=== PATIENT | female | born 1995 | race American Indian/Alaskan Native ===

== ENCOUNTER 2017-02-04 18:29 | Emergency (ER) | payer BC, OTHER ==
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
[2017-02-04] MEDS ORDERED: Albuterol 0.083% 2.5 MG/3 ML Neb Soln NEB ONE (20:20)
[2017-02-04 20:54] LABS: CHLORIDE,CL 106 mmol/L (101-111); SODIUM,NA 135 mmol/L (135-145)
[2017-02-04] MEDS ORDERED: Acetaminophen 325 MG Tab PO ONE (23:13)
[2017-02-05] MEDS ORDERED: Sodium Chloride 0.9% 1,000 ML IV ONE
[2017-02-05 00:08] VITALS: BP 109/57
--- NOTE | 2017-02-06 08:23 | EKG ---
02/04/2017- SAI VARGAS - EKG done on a 21-year-old female, showing sinus tachycardia, heart rate of 128 beats per minute, normal intervals, normal axis. no acute ST T wave changes. [facility] /[id number] MTDD
== END 2017-02-05 00:50 | disposition home or self-care (01) ==
LOC: DL.ED 18:29
DX: O99.513 Diseases of the respiratory system complicating pregnancy, third trimester (principal); J06.9 Acute upper respiratory infection, unspecified; Z3A.35 35 weeks gestation of pregnancy
CPT/HCPCS: 36415; 80053; 81001; 81025; 85025; 85379; 87040; 87081; 87430; 87804; 94640; 96365; 99285; A9270; J7030; J7620

== ENCOUNTER 2017-02-25 13:13 | Inpatient (IN) | payer OTHER ==
[~2017-02-25 13:13] MED LIST: Acetaminophen 325 MG Tab PO PRN; Carboprost Tromethamine 250 MCG/1 ML Amp IM PRN; Lactated Ringers 500 ML IV ONE; Lidocaine 1% 30 ML SDV INJECT PRN; Methylergonovine 0.2 MG/1 ML Amp IM PRN; Misoprostol 400 MCG (4 X 100 MCG TAB) RECTAL PRN; Nalbuphine 10 MG/1 ML Vial IM PRN; Sodium Chloride 0.9% 10 ML Syringe FLUSH PRN; fentaNYL 100 MCG/2 ML SDV IVPUSH PRN
[2017-02-25] MEDS: Lactated Ringers 1,000 ML IV SCH ×4 (16:52→23:35)
[2017-02-25] MEDS: Oxytocin/Normal Saline 30 UNIT/500 ML BAG IV SCH (16:52)
[2017-02-25] MEDS: Ondansetron 4 MG/2 ML SDV IV PRN (22:19)
[2017-02-25] MEDS ORDERED: ePHEDrine 50 MG/ML SDV ONE (22:51)
[2017-02-25] MEDS ORDERED: ePHEDrine 50 MG/ML SDV IV ONE (22:51)
[2017-02-25] MEDS ORDERED: fentaNYL 100 MCG/2 ML SDV ITHECAL ONE (22:51)
--- NOTE | 2017-02-25 23:10 | PCM.PRNOTE ---
- Free Text/Narrative Note: Called to place intrathecal for pain management on this laboring patient. After consent signed, monitors on, proceeded with placement. With patient in sitting position, sterile prep/drape. Skin wheal at L3-4 with 1% lidocaine. LP X 1 at L3-4 with 25 gauge pencan spinal needle via 20g introducer. Positive clear, free flowing CSF, no heme, no paresthesia, then 20mcg sufenta plus 30mcg fentanyl plus 6mg (0.8ml)mpf hyperbaric spinal 0.75%marcaine, plus 0.4ml preservative free normal saline plus epinephrine wash intrathecal. Pt to supine after this. SBP dropped to high 70's, so 10mg ephedrine given while additional fluid bolus given to bring SBP up to 98. FHT's remained stable. Pt reported no discomfort with subsequent contractions.
[2017-02-26] MEDS ORDERED: Ibuprofen 800 MG Tab PO PRN (01:26)
[2017-02-26] MEDS ORDERED: Simethicone 80 MG Tab.Chew PO PRN (01:26)
[2017-02-26] MEDS ORDERED: Benzocaine/Menthol 20%-0.5% Spray 56 GM Canister TOP PRN (01:26)
[2017-02-26] MEDS ORDERED: Docusate Sodium 100 MG Cap PO PRN (01:26)
[2017-02-26] MEDS ORDERED: Zolpidem 5 MG Tab PO PRN (01:26)
[2017-02-26] MEDS: Ondansetron 4 MG/2 ML SDV IV PRN (02:11)
[2017-02-26] MEDS: Oxytocin/Normal Saline 30 UNIT/500 ML BAG IV SCH (02:12)
--- NOTE | 2017-02-26 07:01 | DEL ---
DATE: 02/26/2017 PREPROCEDURE DIAGNOSES: 1. A 37 and 6/7th weeks' based on last menstrual period and 25-week ultrasound. 2. 2, para 1-0-0-1. 3. Oligohydramnios. 4. O positive. 5. Rubella immune. 6. Group strep negative. 7. Insufficient care. 8. Low-grade squamous intraepithelial lesion on Pap smear. 9. Anemia of . 10.Previously low TSH, spontaneously resolved in . 11.Hospital admission in the second trimester for community-acquired pneumonia. POSTPROCEDURE DIAGNOSES: 1. A 37 and 6/7th weeks' based on last menstrual period and 25-week ultrasound. 2. 2, now para 2-0-0-2. 3. Oligohydramnios. 4. O positive. 5. Rubella immune. 6. Group strep negative. 7. Insufficient care. 8. Low-grade squamous intraepithelial lesion on Pap smear. 9. Anemia of . 10.Previously low TSH, spontaneously resolved in . 11.Hospital admission in the second trimester for community-acquired pneumonia. 12.Status post vaginal Delivery. 13.Brisk vaginal bleeding due to uterine atony controlled with bimanual massage and medications. BRIEF HISTORY: A 21-year-old, with the above-listed diagnoses, admitted to the hospital for induction of labor because of oligohydramnios with an JOSEF of 5. Discovered after a clinic visit today with fundal heights measuring less than dates and ultrasound performed. The patient brought in at 3 cm dilated, about 75% effaced, artificial rupture of membranes performed with return of clear fluid. Pitocin then used to further aid labor process. She was in active labor for approximately 8 hours and had an intrathecal for pain management. About the time that it was wearing off, she was ready to start pushing and was able to push for only about 10 minutes before delivering her baby. DETAILS: With the patient in a dorsal lithotomy position, she delivered a viable male in the OA position over intact perineum. 's mouth and nose were bulb suctioned and infant dried and stimulated. Three-vessel umbilical cord was doubly clamped and cut. Baby then taken to the warmer for further evaluation. Cord blood sample obtained and placenta delivered by gentle cord traction and concomitant uterine massage. Bleeding was noted to be brisk from the uterus; therefore, Pitocin was increased to 999 and bimanual massage performed which initially helped with the bleeding then while evaluating the perineal laceration, the bleeding picked up again, so bimanual massage performed again and dose of Methergine given. Once the bleeding was under good control, the first-degree laceration was repaired with 3-0 Vicryl in the usual fashion without complications. The cervix and vaginal sidewalls inspected no other trauma or areas of bleeding were identified. Uterine fundus was firm and responded well to the bimanual massage and the administration of Pitocin and Methergine, and the patient was doing well at end of procedure: COMPLICATIONS: None. ESTIMATED BLOOD LOSS: 450 mL. URINE OUTPUT: 150 mL clear. I did catheterize the patient shortly after delivery to help with the bleeding. FINDINGS: Viable male infant, scores of 9 and 9. weight 7 pounds. Grams currently pending. [facility] /[id number]
--- NOTE | 2017-02-26 12:57 | PCM.POSTAN ---
POST ANESTHESIA ASSESSMENT - MENTAL STATUS Mental Status: other Free Text/Narrative:: pt was asleep when post op visit done. Nurse stated that she is without complaint re: anesthesia - VITAL SIGNS Pulse Rate: 71 Resp Rate: 18 Blood Pressure: 117/71 Temperature: 36.8 C - RESPIRATORY Respiratory Status: respiratory rate WNL - CARDIOVASCULAR CV Status: pulse rate WNL - GASTROINTESTINAL GI Status: no symptoms - POST OP HYDRATION Hydration Status: adequate & stable (Nurse stated that patient has no post anesthesia complications. No c/o back pain, no c/o PDPH, etc.)
[2017-02-26] MEDS: Ferrous Sulfate 325 MG Tab PO SCH ×2 (16:05→17:48)
[2017-02-26] MEDS: Prenatal Multivitamin with Calcium/Folic Acid/Iron Tab PO SCH (16:06)
[2017-02-26] MEDS: Ascorbic Acid 500 MG Tab PO SCH ×2 (16:06→21:31)
[2017-02-27] MEDS ORDERED: Ascorbic Acid 500 MG Tab PO SCH (08:00)
[2017-02-27 08:39] VITALS: BP 105/62
[2017-02-27] MEDS: Prenatal Multivitamin with Calcium/Folic Acid/Iron Tab PO SCH (12:36)
[2017-02-27] MEDS: Ferrous Sulfate 325 MG Tab PO SCH (12:36)
--- NOTE | 2017-02-28 02:01 | DISCH ---
ADMITTING DIAGNOSES: 1. A 37 and 5/7th weeks' based on last menstrual period. 2. 2, para 1-0-0-1. 3. Oligohydramnios indicating need for induction of labor. 4. Blood type O positive, rubella immune, and group B strep negative. 5. Insufficient care. 6. Low-grade squamous intraepithelial lesion on Pap smear. 7. Anemia of . 8. History of suppressed TSH this with negative endocrine evaluation. 9. History hospitalization in the second trimester for community-acquired pneumonia. DISCHARGE DIAGNOSES: Same 10. Post vaginal delivery viable male infant. 11. Post laceration repair. BRIEF HISTORY: A 21-year-old female, admitted to the hospital for induction of labor because of oligohydramnios and an JOSEF of 5. After reactive NST, the patient underwent artificial rupture of membranes followed by augmentation of labor with Pitocin and had a spontaneous vaginal delivery after 8 hours of stage I labor and approximately 10 minutes of pushing, placenta delivered within 3 minutes and there was brisk bleeding noted controlled with bimanual massage and administration of high-dose Pitocin and dose of Methergine. Labia, vagina, and cervix were inspected, and she did have a first-degree midline laceration that needed repair and was performed without difficulty. All of these procedures could be performed under intrathecal without any complications. See the admission history and physical for other details regarding her . HOSPITAL COURSE: Good. The patient has been ambulating and tolerating regular diet since time of delivery and had no other concerns or problems noted by the staff or herself. She is not experiencing any symptoms of preeclampsia. No symptoms of chest pain or shortness of breath. Vaginal bleeding has been well controlled, and she denies any other specific concerns. DISCHARGE CONDITION: Good. PHYSICAL EXAMINATION: Vital Signs: Temperature is 98.6, pulse 68, blood pressure 105/62, respiratory rate of 18, and O2 saturations 98% on room air. Heart: Regular without obvious murmur. Lungs: Clear bilaterally. Abdomen: Soft without masses and fundus is firm and below the umbilicus. Extremities: No edema, erythema, or tenderness noted. LABORATORY DATA: Admission hemoglobin was 9.2. Discharge hemoglobin is 7.8. DISPOSITION: Home with family. MEDICATIONS: 1. [id number] ibuprofen and Tylenol as needed for pain. 2. Iron 325 mg twice daily. 3. Vitamin C 500 mg twice daily. 4. Colace 100 mg twice daily. FOLLOWUP: A 6-week exam will be scheduled. INSTRUCTIONS: Routine post vaginal delivery instructions provided. The patient understands to return if she has any increased bleeding, any pelvic pain, any foul smelling drainage or discharge, fever, chills, or other concerning symptoms. Her questions were answered. [facility] /[id number] PRAKASH
== END 2017-02-27 14:40 | disposition home or self-care (01) | DRG 774 ==
LOC: DL.OBCHECK 13:13 → DL.OB 13:30 → OBSVTOIN 02-26 00:41
PROVIDERS: ADMIT Family Medicine; ATTEND Family Medicine
PROC: 10E0XZZ Delivery of Products of Conception, External Approach (ICD-10-PCS; principal; 2017-02-26)
PROC: 0HQ9XZZ Repair Perineum Skin, External Approach (ICD-10-PCS; 2017-02-26)
PROC: 10907ZC Drainage of Amniotic Fluid, Therapeutic from Products of Conception, Via Natural or Artificial Opening (ICD-10-PCS; 2017-02-26)
PROC: 3E033VJ Introduction of Other Hormone into Peripheral Vein, Percutaneous Approach (ICD-10-PCS; 2017-02-26)
DX: O41.03X0 Oligohydramnios, third trimester, not applicable or unspecified (principal); O72.1 Other immediate postpartum hemorrhage; O70.0 First degree perineal laceration during delivery; O09.33 Supervision of pregnancy with insufficient antenatal care, third trimester; N87.0 Mild cervical dysplasia; O99.02 Anemia complicating childbirth; Z3A.37 37 weeks gestation of pregnancy; Z37.0 Single live birth
CPT/HCPCS: 36415; 85027; A9270-GY; J2210; J2405; J2590; J3010; J7120

== ENCOUNTER 2017-05-14 17:20 | Emergency (ER) | payer OTHER ==
[2017-05-14 18:00] VITALS: BP 117/60
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
== END 2017-05-14 19:58 | disposition home or self-care (01) ==
LOC: DL.ED 17:20
DX: S00.83XA Contusion of other part of head, initial encounter (principal); S40.011A Contusion of right shoulder, initial encounter; S20.211A Contusion of right front wall of thorax, initial encounter; H54.7 Unspecified visual loss; Z90.49 Acquired absence of other specified parts of digestive tract; Y04.0XXA Assault by unarmed brawl or fight, initial encounter
CPT/HCPCS: 73020-RT; 81025; 99284

== ENCOUNTER 2018-07-05 10:25 | Emergency (ER) | payer MEDICAID, OTHER ==
[2018-07-05 10:37] VITALS: BP 102/61
--- NOTE | 2018-07-05 11:02 | EDM.PDOC ---
ED HPI GENERAL MEDICAL PROBLEM - General Chief Complaint: Genitourinary Problem Stated Complaint: POSSIBLE UTI [id number] Time Seen by Provider: 07/05/18 10:56 Source of Information: Reports: Patient, RN, RN Notes Reviewed History Limitations: Reports: No Limitations - History of Present Illness INITIAL COMMENTS - FREE TEXT/NARRATIVE: Patient presents to ER with complaint of frequency, urgency, burning with urination beginning this a.m. Denies chances of . LMP was 06/18/18. She has had no fever, chills, nausea, vomiting or diarrhea. Onset: Today Duration: Getting Worse Quality: Reports: Burning Severity: Moderate Improves with: Reports: None Worsens with: Reports: None Associated Symptoms: Reports: No Other Symptoms Vaginal Pain Score (Numeric/FACES): 10 - Related Data Allergies Allergy/AdvReac Type Severity Reaction Status Date / Time No Known Allergies Allergy Verified 07/05/18 10:37 Home Meds: Home Meds . 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: Musculoskeletal History: Reports: None Neurological History: Reports: None Psychiatric History: Reports: None Endocrine/Metabolic History: Reports: None Hematologic History: Reports: None Immunologic History: Reports: None Dermatologic History: Reports: None - Infectious Disease History Infectious Disease History: Reports: Chicken Pox - Past Surgical History Head Surgeries/Procedures: Reports: None Cardiovascular Surgical History: Reports: None GI Surgical History: Reports: Appendectomy, Other (See Below) Other GI Surgeries/Procedures: appy in 2013 Social & Family History - Family History Family Medical History: Noncontributory Cardiac: Reports: Pacemaker Respiratory: Reports: Asthma : Reports: Renal Disease/Insufficiency Musculoskeletal: Reports: Arthritis Endocrine/Metabolic: Reports: Diabetes, type II - Tobacco Use Smoking Status *Q: Never Smoker Second Hand Smoke Exposure: No - Caffeine Use Caffeine Use: Reports: Coffee, Energy Drinks, Soda - Recreational Drug Use Recreational Drug Use: No ED ROS GENERAL - Review of Systems Review Of Systems: ROS reveals no pertinent complaints other than HPI. ED EXAM, RENAL/ - Physical Exam Exam: See Below Exam Limited By: No Limitations General Appearance: Alert, WD/WN, No Apparent Distress Eye Exam: Bilateral Eye: EOMI, Normal Inspection, PERRL Ears: Normal External Exam, Normal Canal, Hearing Grossly Normal, Normal TMs Throat/Mouth: Normal Inspection, Normal Lips, Normal Teeth, Normal Gums, Normal Oropharynx, Normal Voice, No Airway Compromise Head: Atraumatic, Normocephalic Neck: Normal Inspection, Supple, Non-Tender, Full Range of Motion Respiratory/Chest: No Respiratory Distress, Lungs Clear, Normal Breath Sounds, No Accessory Muscle Use, Chest Non-Tender Cardiovascular: Normal Peripheral Pulses, Regular Rate, Rhythm, No Edema, No Gallop, No JVD, No Murmur, No Rub GI/Abdominal: Normal Bowel Sounds, Soft, Non-Tender, No Organomegaly, No Distention, No Abnormal Bruit, No Mass (Female) Exam: Deferred Rectal (Female) Exam: Deferred Back Exam: No: CVA Tenderness (L), CVA Tenderness (R) Extremities: Normal Inspection, Normal Range of Motion, Non-Tender, Normal Capillary Refill, No Pedal Edema Neurological: Alert, Oriented, CN II-XII Intact, Normal Cognition, Normal Gait, Normal Reflexes, No Motor/Sensory Deficits Psychiatric: Normal Affect, Normal Mood Lymphatic: No Adenopathy Course - Vital Signs Last Recorded V/S: Last Vital Signs Temp 98.8 F 07/05/18 10:30 Pulse 86 07/05/18 10:30 Resp 16 07/05/18 10:30 BP 102/61 07/05/18 10:30 Pulse Ox 100 07/05/18 10:30 - Orders/Labs/Meds Labs: Laboratory Tests 07/05/18 Range/Units 10:35 Urine Color Yellow (YELLOW) Urine Appearance Cloudy (CLEAR) Urine pH 7.5 (5.0-9.0) Ur Specific [place] 1.025 (1.005-1.030) Urine Protein 100 H (NEGATIVE) Urine Glucose (UA) Negative (NEGATIVE) Urine Ketones Negative (NEGATIVE) Urine Occult Blood Large H (NEGATIVE) Urine Nitrite Negative (NEGATIVE) Urine Bilirubin Negative (NEGATIVE) Urine Urobilinogen 2.0 H (0.2-1.0) mg/dL Ur Leukocyte Esterase Large H (NEGATIVE) Urine RBC >100 H /HPF Urine WBC >100 H (0-5/HPF) /HPF Ur Epithelial Cells Few /HPF Urine Bacteria Moderate H (0-FEW/HPF) /HPF Urine Mucus Few H /LPF Urine Yeast Few H (0/HPF) /HPF Departure - Departure Time of Disposition: 11:00 Disposition: Home, Self-Care 01 Condition: Fair Clinical Impression: UTI (urinary tract infection) Qualifiers: Urinary tract infection type: site unspecified Hematuria presence: without hematuria Qualified Code(s): N39.0 - Urinary tract infection, site not specified - Discharge Information *PRESCRIPTION DRUG MONITORING PROGRAM REVIEWED*: No *COPY OF PRESCRIPTION DRUG MONITORING REPORT IN PATIENT BEATRIS: No Instructions: Urinary Tract Infection, Adult, [id number], You've Been Prescribed Antibiotics in the Hospital for Infection-[facility] (01/21) Referrals: PCP,None [Primary Care Provider] - Forms: ED Department Discharge Additional Instructions: Drink plenty of water RX: macrobid Follow up with your primary care facility May use Tylenol and/or Ibuprofen as directed for pain/fever
== END 2018-07-05 11:08 | disposition home or self-care (01) ==
LOC: DL.ED 10:25
DX: N39.0 Urinary tract infection, site not specified (principal)
CPT/HCPCS: 81001; 87086; 87088; 87186; 99284

== ENCOUNTER 2019-10-01 16:00 | Emergency (ER) | payer SELFPAY ==
--- NOTE | 2019-10-01 16:16 | EDM.PDOC ---
<Eneida Conrad - Last Filed: 10/01/19 18:33> ED HPI GENERAL MEDICAL PROBLEM - General Chief Complaint: Chest Pain Stated Complaint: CHEST PAIN Time Seen by Provider: 10/01/19 16:16 Source of Information: Reports: Patient, RN, RN Notes Reviewed History Limitations: Reports: No Limitations - History of Present Illness INITIAL COMMENTS - FREE TEXT/NARRATIVE: Pt presents to ER with c/o palpitations, racing/pounding heart, and chest pains that began about 1100 today. Patient states she is 24 weeks . Patient states this has happened in the past with both previous pregnancies. She states she was told it was due to her thyroid during . Patient denies any vaginal bleeding, or bleeding elsewhere. States she has felt well, and has been feeling the baby move. Onset: Today, Sudden - Related Data Allergies Allergy/AdvReac Type Severity Reaction Status Date / Time No Known Allergies Allergy Verified 10/01/19 16:12 Home Meds: Home Meds Vit No.129/Iron/FA [ One Daily Tablet] 1 tab PO DAILY 10/01/19 [History] Past Medical History - Past Health History Medical/Surgical History: Denies Medical/Surgical History HEENT History: Reports: Impaired Vision Cardiovascular History: Reports: Arrhythmia, Other (See Below) Other Cardiovascular History: SVT early February 2017 Respiratory History: Reports: None Gastrointestinal History: Reports: Other (See Below) Other Gastrointestinal History: Heartburn with Genitourinary History: Reports: 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: Musculoskeletal History: Reports: None Neurological History: Reports: None Psychiatric History: Reports: None Endocrine/Metabolic History: Reports: None Hematologic History: Reports: None Immunologic History: Reports: None Dermatologic History: Reports: None - Infectious Disease History Infectious Disease History: Reports: Chicken Pox - Past Surgical History Head Surgeries/Procedures: Reports: None Cardiovascular Surgical History: Reports: None GI Surgical History: Reports: Appendectomy, Other (See Below) Other GI Surgeries/Procedures: appy in 2013 Social & Family History - Family History Family Medical History: Noncontributory Cardiac: Reports: Pacemaker Respiratory: Reports: Asthma : Reports: Renal Disease/Insufficiency Musculoskeletal: Reports: Arthritis Endocrine/Metabolic: Reports: Diabetes, type II - Caffeine Use Caffeine Use: Reports: Coffee, Energy Drinks, Soda ED ROS GENERAL - Review of Systems Review Of Systems: Comprehensive ROS is negative, except as noted in HPI. ED EXAM, GENERAL - Physical Exam Exam: See Below Exam Limited By: No Limitations General Appearance: Alert, WD/WN, Mild Distress Eye Exam: Bilateral Eye: EOMI, Normal Inspection Ears: Normal External Exam, Hearing Grossly Normal Nose: Normal Inspection Throat/Mouth: Normal Inspection, Normal Voice, No Airway Compromise Head: Atraumatic, Normocephalic Neck: Normal Inspection, Supple, Non-Tender, Full Range of Motion Respiratory/Chest: No Respiratory Distress, Lungs Clear, Normal Breath Sounds, No Accessory Muscle Use, Chest Non-Tender Cardiovascular: No Edema, No Gallop, No JVD, No Murmur, No Rub, Tachycardia Peripheral Pulses: 1+: Radial (L), Radial (R) GI/Abdominal: Normal Bowel Sounds, Soft, Non-Tender (Female) Exam: Deferred Rectal (Female) Exam: Deferred Extremities: Normal Inspection, Normal Range of Motion, Non-Tender, Normal Capillary Refill, No Pedal Edema Neurological: Alert, Oriented, CN II-XII Intact, Normal Cognition, Normal Gait, Normal Reflexes, No Motor/Sensory Deficits Psychiatric: Normal Mood, Anxious Skin Exam: Warm, Dry, Intact, Normal Color, No Rash Lymphatic: No Adenopathy Course - Vital Signs Last Recorded V/S: Last Vital Signs Temp 37.1 C 10/01/19 21:14 Pulse 100 10/01/19 21:14 Resp 16 10/01/19 21:14 BP 115/68 10/01/19 21:14 Pulse Ox 97 10/01/19 21:14 - Orders/Labs/Meds Orders: Active Orders 24 hr Category Date Time Status EKG 12 Lead [EKG Documentation Completion] [RC] STAT Care 10/01/19 16:19 Active EKG 12 Lead [EKG Documentation Completion] [RC] STAT Care 10/01/19 16:46 Active EKG Documentation Completion [RC] STAT Care 10/01/19 20:26 Active Peripheral IV Care [RC] . DIRECTED Care 10/01/19 16:25 Active FREE T3 [REF] Stat Lab 10/01/19 16:26 Received THYROXINE (T4) [REF] Stat Lab 10/01/19 16:26 Received Sodium Chloride 0.9% [Saline Flush] Med 10/01/19 16:25 Active 10 ml FLUSH ASDIRECTED PRN Peripheral IV Insertion Adult [OM.PC] Stat Oth 10/01/19 16:25 Ordered Medication Orders Sodium Chloride (Saline Flush) 10 ml FLUSH ASDIRECTED PRN PRN Reason: Keep Vein Open Last Admin: 10/01/19 16:41 Dose: 10 ml Labs: Laboratory Tests 10/01/19 10/01/19 10/01/19 Range/Units 16:26 16:26 16:26 WBC 8.8 (5.0-10.0) 10^3/uL RBC 4.45 (4.2-5.4) 10^6/uL Hgb 10.5 L D (12.0-16.0) g/dL Hct 32.8 L (37.0-47.0) % MCV 73.7 L (80-100) fL MCH 23.6 L (27.0-34.0) pg MCHC 32.0 L (33.0-35.0) g/dL Plt Count 340 (150-450) 10^3/uL Neut % (Auto) 77.6 H (42.2-75.2) % Lymph % (Auto) 15.6 L (20.5-50.1) % [place]igo % (Auto) 6.6 (2-8) % Eos % (Auto) 0.1 L (1.0-3.0) % Baso % (Auto) 0.1 (0.0-1.0) % Sodium 136 (135-145) mmol/L Potassium 3.0 L (3.6-5.0) mmol/L Chloride 109 (101-111) mmol/L Carbon Dioxide 15.0 L (21.0-31.0) mmol/L Anion Gap 15.0 BUN 7 (7-18) mg/dL Creatinine 0.6 (0.6-1.3) mg/dL Est Cr Clr Drug Dosing 135.35 mL/min Estimated GFR (MDRD) > 60 BUN/Creatinine Ratio 11.66 Glucose 120 H (74-105) mg/dL Calcium 8.4 (8.4-10.2) mg/dl Total Bilirubin 0.2 (0.2-1.0) mg/dL AST 29 (10-42) IU/L ALT 16 (10-60) IU/L Alkaline Phosphatase 56 (42-121) IU/L Creatine Kinase (26-174) IU/L Creatine Kinase Index (0-2.4) % CK-MB (CK-2) (0.4-4.7) ng/mL Troponin I 0.10 H* (0.00-0.02) ng/ml Total Protein 6.6 L (6.7-8.2) g/dl Albumin 2.9 L (3.2-5.5) g/dl Globulin 3.7 Albumin/Globulin Ratio 0.78 TSH, Ultra Sensitive 0.32 L (0.45-5.33) uIu/mL 10/01/19 10/01/19 Range/Units 16:26 20:20 WBC (5.0-10.0) 10^3/uL RBC (4.2-5.4) 10^6/uL Hgb (12.0-16.0) g/dL Hct (37.0-47.0) % MCV (80-100) fL MCH (27.0-34.0) pg MCHC (33.0-35.0) g/dL Plt Count (150-450) 10^3/uL Neut % (Auto) (42.2-75.2) % Lymph % (Auto) (20.5-50.1) % Vigo % (Auto) (2-8) % Eos % (Auto) (1.0-3.0) % Baso % (Auto) (0.0-1.0) % Sodium (135-145) mmol/L Potassium (3.6-5.0) mmol/L Chloride (101-111) mmol/L Carbon Dioxide (21.0-31.0) mmol/L Anion Gap BUN (7-18) mg/dL Creatinine (0.6-1.3) mg/dL Est Cr Clr Drug Dosing mL/min Estimated GFR (MDRD) BUN/Creatinine Ratio Glucose (74-105) mg/dL Calcium (8.4-10.2) mg/dl Total Bilirubin (0.2-1.0) mg/dL AST (10-42) IU/L ALT (10-60) IU/L Alkaline Phosphatase (42-121) IU/L Creatine Kinase 27 (26-174) IU/L Creatine Kinase Index 4.4 H (0-2.4) % CK-MB (CK-2) 1.20 (0.4-4.7) ng/mL Troponin I 0.39 H* (0.00-0.02) ng/ml Total Protein (6.7-8.2) g/dl Albumin (3.2-5.5) g/dl Globulin Albumin/Globulin Ratio TSH, Ultra Sensitive (0.45-5.33) uIu/mL Meds: Medications Generic Name Dose Route Start Last Admin Trade Name Freq PRN Reason Stop Dose Admin Sodium Chloride 10 ml 10/01/19 16:25 10/01/19 16:41 Saline Flush FLUSH 10 ml ASDIRECTED PRN Administration Keep Vein Open Discontinued Medications Generic Name Dose Route Start Last Admin Trade Name Freq PRN Reason Stop Dose Admin Adenosine 6 mg 10/01/19 16:26 10/01/19 16:34 Adenocard IVPUSH 10/01/19 16:27 6 mg NOW ONE Administration Adenosine 12 mg 10/01/19 16:38 10/01/19 16:39 Adenocard IVPUSH 10/01/19 16:39 12 mg NOW ONE Administration Adenosine Confirm 10/01/19 16:37 10/01/19 16:42 Adenocard Administered 10/01/19 16:38 Not Given Dose 12 mg .ROUTE .STK-MED ONE Sodium Chloride 1,000 mls @ 999 mls/hr 10/01/19 16:38 10/01/19 16:41 Normal Saline IV 10/01/19 17:38 999 mls/hr .BOLUS ONE Administration Potassium Chloride 20 meq 10/01/19 17:43 10/01/19 18:25 Klor-Con 10 PO 10/01/19 17:44 20 meq ONETIME ONE Administration - Re-Assessments/Exams Free Text/Narrative Re-Assessment/Exam: 10/01/19 17:44 Adenosine 6 mg administered without any change. Adenosine 12mg administered with conversion to sinus rhythm with a rate of 105. Patient case discussed with Dr. Zapata, CR[facility]FFER, [facility], who states the patient is stable from an OB standpoint and needs to be cleared through Cardiology. Pt case discussed with Dr. Ma who states he feels the troponin is elevated from the sustained tachycardia, and he is not concerned about this. Patient case discussed with Dr. Dougherty who also states she feels the patient can be discharged home and be followed up next week. Patient will be kept for extended ER to re-evaluate troponin and EKG. If stable and no changes, the patient will be discharged home. Departure - Departure Disposition: DC/Tfer to [facility] 02 Clinical Impression: SVT (supraventricular tachycardia), Hyperthyroidism affecting in second trimester, Hypokalemia, Elevated troponin Instructions: Hyperthyroidism, Supraventricular Tachycardia, Adult, Easy-to- Read, Hypokalemia Forms: Interfacility Transfer EMTALA Additional Instructions: Follow up with Nancy Lopez early next week RX: Potassium Chloride as directed Return to the ER with any worsening of problems Sepsis Event Note - Evaluation Sepsis Screening Result: No Definite Risk - Focused Exam Vital Signs: Vital Signs Temp Pulse Resp BP Pulse Ox 10/01/19 21:14 37.1 C 100 16 115/68 97 10/01/19 17:50 98 22 H 97/66 98 10/01/19 16:04 36.8 C 150 H 18 112/68 100 Date Exam was Performed: 10/01/19 Time Exam was Performed: 18:34 <Zaid De Paz - Last Filed: 10/01/19 21:34> Course - Re-Assessments/Exams Free Text/Narrative Re-Assessment/Exam: 10/01/19 21:32 case discussed with GF who is on diversion. Dr Marie @ [facility] kindly accepted pt. Departure - Departure Time of Disposition: 21:33 Reason for Transfer *Q: Other Condition: Good Sepsis Event Note - Focused Exam Date Exam was Performed: 10/01/19 Time Exam was Performed: 21:23
[2019-10-01] MEDS ORDERED: Sodium Chloride 0.9% 10 ML Syringe FLUSH PRN (16:25)
[2019-10-01] MEDS ORDERED: Adenosine 6 MG/2 ML SDV IVPUSH ONE ×2 (16:26→16:38)
[2019-10-01] MEDS ORDERED: Adenosine 12 MG/4 ML SDV ONE (16:37)
[2019-10-01] MEDS ORDERED: Sodium Chloride 0.9% 1,000 ML IV ONE (16:38)
[2019-10-01 16:54] LABS: CHLORIDE,CL 109 mmol/L (101-111); SODIUM,NA 136 mmol/L (135-145)
[2019-10-01] MEDS ORDERED: Potassium Chloride 10 MEQ Tab.ER PO ONE (17:43)
[2019-10-01 21:15] VITALS: BP 115/68; PULSE 100
== END 2019-10-01 22:28 ==
LOC: DL.ED 16:00
DX: O99.412 Diseases of the circulatory system complicating pregnancy, second trimester (principal); I47.1 Supraventricular tachycardia; O99.282 Endocrine, nutritional and metabolic diseases complicating pregnancy, second trimester; E05.90 Thyrotoxicosis, unspecified without thyrotoxic crisis or storm; E87.6 Hypokalemia; O99.89 Other specified diseases and conditions complicating pregnancy, childbirth and the puerperium; R79.89 Other specified abnormal findings of blood chemistry; Z3A.24 24 weeks gestation of pregnancy
CPT/HCPCS: 36415; 80053; 82550; 82553; 84436; 84443; 84481; 84484; 85025; 93005; 96361; 96374; 99284; 99285; A9270; J0153; J7030

== ENCOUNTER 2020-01-20 23:07 | Inpatient (IN) | payer MEDICAID, OTHER ==
[2020-01-20] MEDS ORDERED: Lactated Ringers 1,000 ML IV ONE (23:37)
[2020-01-21] MEDS ORDERED: fentaNYL 100 MCG/2 ML SDV ONE
[2020-01-21] MEDS ORDERED: Sodium Bicarbonate 4.2% 2.5 MEQ/5 ML SDV ONE ×2 (00:01→13:09)
[2020-01-21] MEDS ORDERED: Methylergonovine 0.2 MG/1 ML Amp IM PRN (00:07)
[2020-01-21] MEDS ORDERED: Misoprostol 400 MCG (4 X 100 MCG TAB) RECTAL PRN (00:07)
[2020-01-21] MEDS ORDERED: Tranexamic Acid 1,000 MG in Sodium Chloride 0.9% 100 ML IV PRN (00:07)
[2020-01-21] MEDS ORDERED: Carboprost Tromethamine 250 MCG/1 ML Amp IM PRN (00:07)
[2020-01-21] MEDS ORDERED: Lidocaine 1% 30 ML SDV INJECT PRN (00:07)
[2020-01-21] MEDS ORDERED: Ondansetron 4 MG/2 ML SDV IVPUSH PRN (00:07)
[2020-01-21] MEDS ORDERED: Sodium Chloride 0.9% 10 ML Syringe FLUSH PRN (00:07)
[2020-01-21] MEDS: Lactated Ringers 1,000 ML IV SCH ×2 (00:10→00:55)
[2020-01-21] MEDS ORDERED: Oxytocin/Normal Saline 30 UNIT/500 ML BAG IV SCH (00:15)
--- NOTE | 2020-01-21 00:32 | PCM.SN ---
- Free Text/Narrative Note: Intrathecal. Sitting position, sterile prep and drape, 1% lidocaine w bicarb for skinwheal to L2 L3 interspace. Introducer, 24 ga pencan x 2, pos CSF, neg heme neg parasthesia. 1:1000 pf epi wash, 20 mcg pf sufenta, 30 mcg pf fentanyl , 0.4 ml pf ns and 6 mg of 0.75% pf bupivacaine injected after CSF aspiration. Pt to L lateral position. procedure time 0000 to 0030 TeleHealth - TeleHealth Patient Service Facility: [facility]: [facility] Informed Consent: Telemedicine Audio/Visual Informed Consent: The risks, benefits, and alternatives to the telehealth visit were explained to the patient and the patient consented to this modality of care. The telehealth visit was carried out via a secure, web-based conferencing system. This telemedicine service was a real-time, two-way interactive video and communication between the patient and the provider. All the parties involved were identified and approved by the patient prior to the visit. Any physical exam was assisted by the patient. Unless noted otherwise, the provider was located at their usual clinic location , and the patient was at their place of residence. Patient identity was confirmed by having the patient state their name and date of . All communications with the patient (verbal, audiovisual, and written) were documented in the patients medical record per documentation standards.
--- NOTE | 2020-01-21 02:15 | HP ---
CHIEF COMPLAINT: Increased force and frequency of contractions. HISTORY OF PRESENT ILLNESS: A 24-year-old 3, para 2-0-0-2, who presents to Labor and Delivery reporting contractions starting around 10 o'clock in the evening, getting stronger and closer together. She has had a little bit of light spotting. No heavier vaginal bleeding. No leakage of fluid. movement has been good. No symptoms of preeclampsia. No shortness of breath or chest pain. Denies any other acute concerns. OBSTETRICAL HISTORY: care initiated late at 21 weeks' gestation at [facility] and those labs showed urine drug screen negative, wet prep for 1+ clue cells. Gonorrhea and chlamydia negative. TSH 0.07 at 12 weeks. HIV negative. Hepatitis C negative. Blood type O positive. Hepatitis B negative. RPR negative. Rubella immune. She has received her Tdap and her flu vaccine. anatomy ultrasound was normal at 21-3/7 weeks' gestation. She has been taking her vitamin and only complications were breech presentation at 34 weeks. Baby did manage to turn cephalic spontaneously and has stayed head down. Glucose tolerance test was normal at 116. Quad screen was normal. PAST MEDICAL HISTORY: Abnormal Pap smear in 2016, LSIL, history of ear piercing. No tattoos or IV drug use or blood transfusions. She has migraine headaches. She has had supraventricular tachycardia, normal echo. She was successfully cardioverted with adenosine. Prior pregnancies complicated by oligohydramnios, hemorrhage, and 1 by vacuum delivery. PAST SURGICAL HISTORY: Laparoscopic appendectomy at age 18. FAMILY HISTORY: Mother and father are alive and well. Two sisters and 2 brothers alive and well. Maternal grandmother alive and well. Maternal grandfather , cancer of unknown primary, diabetes, coronary artery disease. Paternal grandmother alive and has Alzheimer's. Paternal grandfather is . There is a maternal great aunt with breast cancer. Two maternal cousins with diabetes and 1 cousin with Down syndrome. SOCIAL HISTORY: The patient is living with her 2 children and . 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 His parents are reportedly healthy and this is the 3rd baby for each of them. MEDICATIONS: vitamin 1 daily, iron 325 mg twice daily. ALLERGIES: No known drug allergies. REVIEW OF SYSTEMS: As outlined above. No recent fever, chills, chest pain, shortness of breath, nausea, vomiting, diarrhea, or constipation. Some light spotting. Otherwise, negative. PHYSICAL EXAMINATION: Vital Signs: Blood pressure 139/82, pulse 90, respiratory rate 18, she is afebrile. HEENT: Grossly unremarkable. Heart: Regular without murmur. Lungs: Clear to auscultation bilaterally. Abdomen: Gravid, soft, nontender, and positive bowel sounds. Cervix per nurse's initial exam 6 cm dilated, 90% effaced, palpates vertex. Extremities: No edema, erythema, or tenderness noted. Skin: Warm, dry. Appropriate for race. ASSESSMENT: 1. 39-1/7 weeks intrauterine based on 21-week ultrasound. She would be 39-3/7 weeks by last menstrual period. 2. 3, para 2-0-0-2. 3. History of supraventricular tachycardia with a normal echocardiogram in 02/2015. 4. History of vacuum delivery. 5. History of oligohydramnios, prior . 6. History of hemorrhage due to uterine atony and third-degree laceration. 7. Hyperthyroidism in the first and second trimesters and that has resolved. 8. Anemia of . PLAN: The patient admitted to Labor and Delivery Unit. She will be given a bolus of IV fluids and have her labs checked because she would like an intrathecal for pain control. After that, we will anticipate artificial rupture of membranes if needed to help labor progress, although she has a history of fairly quick labors before, so hopefully she will do most of this on her own. Her questions have been answered. We will be anticipating vaginal delivery and intervening as needed should any problems or concerns arise. [facility] /[id number] PRAKASH
[2020-01-21] MEDS ORDERED: Simethicone 80 MG Tab.Chew PO PRN (02:34)
[2020-01-21] MEDS ORDERED: Benzocaine/Menthol 20%-0.5% Spray 56 GM Canister TOP PRN (02:34)
--- NOTE | 2020-01-21 03:27 | DEL ---
DATE: 01/21/2020 PREPROCEDURE DIAGNOSES: 1. A 39-2/7 weeks intrauterine based on 21-week ultrasound. 2. 3, para 2-0-0-2. 3. History of vacuum delivery. 4. History of oligohydramnios in prior . 5. History of hemorrhage due to uterine atony and third-degree laceration in prior . 6. Hyperthyroidism in the first and second trimesters, resolved. 7. Anemia of . 8. History of supraventricular tachycardia with a normal echocardiogram in February 2015. POSTPROCEDURE DIAGNOSES: 1. 3, now para 3-0-0-3; status post spontaneous vaginal delivery with first-degree laceration repair. 2. History of vacuum delivery. 3. History of oligohydramnios in prior . 4. History of hemorrhage due to uterine atony and third-degree laceration in prior . 5. Hyperthyroidism in the first and second trimesters, resolved. 6. Anemia of . 7. History of supraventricular tachycardia with a normal echocardiogram in February 2015. ANESTHESIA: Intrathecal. BRIEF HISTORY: A 24-year-old female with the above-listed diagnoses, presented to the hospital at 6 cm dilated and 90% effaced after having a couple of hours of labor at home, and she was continuing to have regular contractions, so intrathecal was called for, and she was also bolused with fluids after that. Contractions spaced out to every 6 to 7 minutes. Therefore, artificial rupture of membranes and augmentation with Pitocin were started, and she quickly went on to complete thereafter with a total stage I labor of about 5 hours. She only needed to push for about 3 minutes, and placenta delivered about 3 minutes after that without any complications and details as below. DELIVERY DETAILS: With patient in dorsal lithotomy position, she delivered a viable female infant in the OA position over an intact perineum. Baby was dried, stimulated, and had a lot of secretions present, so nose and mouth were also suctioned, and baby placed above mother's abdomen. After a delay, three- vessel umbilical cord was doubly clamped and cut, and cord blood sample obtained. Placenta then delivered by gentle cord traction and concomitant uterine massage, was inspected and fully intact. The labia and vagina were inspected. There was a first-degree laceration present and not bleeding. However, there was a big enough gap that I did decide to go ahead and repair it using 3-0 Vicryl suture and throwing 3 stitches total. The patient tolerated procedure well, and there were no complications. ESTIMATED BLOOD LOSS: Less than 100 mL. FINDINGS: Viable female with scores of 8 and 9 and weight 3147 g, 6 pounds 15 ounces. DISPOSITION: Mother and baby to stay in the room for some continued bonding. Mother will be bottle feeding and her questions answered. COMPLICATIONS: none. [facility] /[id number] PRAKASH
--- NOTE | 2020-01-21 08:01 | PN ---
DATE: 01/21/2020 TIME: Just before 1 a.m. SUBJECTIVE: The patient is resting comfortably now that she has had her intrathecal placed and not really feeling the contractions much anymore. OBJECTIVE: [place] shows that the contractions have spaced out to about every 6 to 7 minutes. Her vital signs have remained stable. Baby's baseline heart rate is around 150 beats per minute with moderate [id number] variability and prolonged accelerations up into the 160s and 170s. [place] showing contractions every 6 to 7 minutes. Cervix is 6 cm dilated, 95% effaced, -2 station. Bulging bag of water was intact and it was ruptured with AmniHook with return of clear fluid. The patient tolerated well. ASSESSMENT: 3, para 2-0-0-2 at 39 and 2/7 weeks' gestation requiring augmentation of labor after intrathecal and fluid bolus. PLAN: Continue active labor management. We will plan on starting some Pitocin along with the artificial rupture in hopes to get her delivered while her intrathecal is still effective. Prior labors noted to be about 4 or 5 hours in length and undetermined amount of pushing that was required. [facility] /[id number]
[2020-01-21] MEDS: Ferrous Sulfate 325 MG Tab PO SCH ×3 (12:21→20:23)
[2020-01-21] MEDS: Docusate Sodium 100 MG Cap PO PRN ×2 (12:21→19:33)
[2020-01-21] MEDS: Prenatal Multivitamin with Calcium/Folic Acid/Iron Tab PO SCH (12:21)
[2020-01-21] MEDS: Ibuprofen 800 MG Tab PO PRN ×2 (12:22→20:27)
[2020-01-21] MEDS ORDERED: Sodium Chloride 0.9% 10 ML Syringe ONE (13:09)
[2020-01-21] MEDS ORDERED: EPINEPHrine 1 MG/1 ML Amp ONE ×2 (13:09)
[2020-01-21] MEDS ORDERED: fentaNYL 100 MCG/2 ML SDV IV ONE (13:09)
[2020-01-21] MEDS: Acetaminophen 325 MG Tab PO PRN (19:31)
[2020-01-22] MEDS: Ibuprofen 800 MG Tab PO PRN (04:26)
[2020-01-22] MEDS: Acetaminophen 325 MG Tab PO PRN (04:26)
[2020-01-22] MEDS: Prenatal Multivitamin with Calcium/Folic Acid/Iron Tab PO SCH (10:40)
[2020-01-22] MEDS: Docusate Sodium 100 MG Cap PO PRN (10:40)
[2020-01-22] MEDS: Ferrous Sulfate 325 MG Tab PO SCH (10:40)
[2020-01-22 12:39] VITALS: BP 117/69; PULSE 92
--- NOTE | 2020-01-22 20:50 | DISCH ---
ADMISSION DIAGNOSES: 1. 39-1/7 weeks' gestation based on 21-week ultrasound. 2. 3, para 2-0-0-2. 3. History of prior pregnancies complicated by vacuum delivery, oligohydramnios, hemorrhage. 4. Hyperthyroidism in the 1st and 2nd trimesters, resolved. 5. Anemia of . 6. History of supraventricular tachycardia, requiring chemical cardioversion, but the patient had normal echo done in 02/2015. DISCHARGE DIAGNOSES: 1. Status post spontaneous vaginal delivery at 39-2/7 weeks. 2. 3, para 3-0-0-3. 3. History of prior pregnancies complicated by vacuum delivery, oligohydramnios, hemorrhage. 4. Hyperthyroidism in the 1st and 2nd trimesters, resolved. 5. Anemia of . 6. History of supraventricular tachycardia, requiring chemical cardioversion, but the patient had normal echo done in 02/2015. PROCEDURES PERFORMED: Intrathecal, artificial rupture of membranes, spontaneous vaginal delivery, and first-degree laceration repair. HOSPITAL COURSE: Has been good. The patient presented with spontaneous labor. After her intrathecal and fluid bolus, contractions spaced out. Therefore, artificial rupture of membranes was performed at 6 cm dilated, and then she was augmented with Pitocin, and delivered an hour and a half after that. Delivery was unremarkable and she did quite well. EBL was less than 100. First-degree repair was performed just due to the gap of the lesion. She has been ambulating, tolerating regular diet, bottle feeding her baby. Blood flow has been about like a period. No chest pain or shortness of breath. No change in extremity edema. No problems with bowel or bladder function. DISCHARGE CONDITION: Good. PHYSICAL EXAMINATION: Vital Signs: Temperature is 98.5, pulse 77, blood pressure 122/73, respiratory rate of 16, and O2 saturations 99% on room air. Heart: Regular without murmur. Lungs: Clear to auscultation bilaterally. Abdomen: Soft, nontender. Bowel sounds positive. Fundus is firm and below the umbilicus. Extremities: No edema, erythema, or tenderness noted. LABORATORY DATA: On admission, hemoglobin 10.0, platelet count 266. Labs not being repeated because she had minimal blood loss with delivery and she is not symptomatic enough to consider blood transfusion and needs to stay on her iron supplementation. DISPOSITION: Home with family. MEDICATIONS: Iron 325 mg twice daily, Colace 100 mg twice daily as needed for constipation, vitamin continue 1 daily, Tylenol 650 mg every 4-6 hours as needed, and ibuprofen 800 mg every 8 hours as needed for pain. FOLLOWUP: She will need to be seen for a 6-week visit. When I see the baby at 2 days and 2 weeks, I will be checking in with her for any signs or symptoms of depression and treating her clinically if that is indicated. INSTRUCTIONS: Routine post vaginal delivery instructions were given and her questions answered. [facility] /[id number]
== END 2020-01-22 13:10 | disposition home or self-care (01) | DRG 807 ==
LOC: DL.OBCHECK 23:07 → DL.OB 23:39 → OBSVTOIN 01-21 02:15
PROVIDERS: ADMIT Family Medicine; ATTEND Family Medicine
PROC: 10E0XZZ Delivery of Products of Conception, External Approach (ICD-10-PCS; principal; 2020-01-21)
PROC: 10907ZC Drainage of Amniotic Fluid, Therapeutic from Products of Conception, Via Natural or Artificial Opening (ICD-10-PCS; 2020-01-21)
DX: O99.02 Anemia complicating childbirth (principal); Z37.0 Single live birth; D64.9 Anemia, unspecified; Z3A.39 39 weeks gestation of pregnancy; O70.0 First degree perineal laceration during delivery; Z28.82 Immunization not carried out because of caregiver refusal
CPT/HCPCS: 36415; 59409; 85027; A9270-GY; J0171; J2405; J2590; J3010; J7120

== ENCOUNTER 2023-04-27 15:30 | Emergency (ER) | payer BC, MEDICAID ==
[2023-04-27 15:37] VITALS: BP 126/66; PULSE 107
[2023-04-27 16:09] LABS: APPEARANCE,URINE SLIGHTLY CLOUDY (CLEAR); BILIRUBIN,URINE NEGATIVE (NEGATIVE); COLOR,URINE YELLOW (YELLOW); GLUCOSE,URINE NEGATIVE (NEGATIVE); KETONES,URINE NEGATIVE (NEGATIVE); LEUKOCYTE ESTERASE,URINE MODERATE (NEGATIVE); NITRITE,URINE POSITIVE (NEGATIVE); OCCULT BLOOD,URINE SMALL (NEGATIVE); PROTEIN,URINE 100 (NEGATIVE)
[2023-04-27] MEDS ORDERED: Ciprofloxacin 500 MG Tab PO ONE (16:13)
[2023-04-27 16:16] LABS: EPITHELIAL CELLS,URINE FEW /HPF (NOT SEEN)
[2023-04-27 16:17] LABS: WBC,URINE >100 /HPF (0-5/HPF)
[2023-04-27 16:18] LABS: BACTERIA,URINE MODERATE /HPF (0-FEW/HPF)
== END 2023-04-27 16:20 | disposition home or self-care (01) ==
LOC: DL.ED 15:30
DX: N39.0 Urinary tract infection, site not specified (principal)
CPT/HCPCS: 81001; 81025; 87086; 87088; 87186; 99284; A9270; 99283